=== PATIENT | male | born 1975 | race Caucasian/White ===

== ENCOUNTER 2018-12-27 22:57 | Emergency (ER) | payer OTHER ==
[~2018-12-27] VITALS: Ht 177.8 cm; Wt 122.0 kg
[~2018-12-27 22:57] MED LIST: AMLO10 PO; AMOCLA875 PO; CYCL10 PO; Flomax0.4 MG PO; HYDR1TAB94 PO; LISINOPRIL; LOSA50 PO; METF500 PO; Naprosyn500 MG PO; Norco 5-325 Ta1 EACH PO; ONDA4 PO; OXYACE5T PO; Prilosec2.5 MG; RXERYTOPTH OP
[2018-12-28 01:33] LABS: BASOPHILS ABSOLUTE AUTO 0.05 K/mm3 (0.00-0.23); BASOPHILS PERCENT AUTO 1 % (0-2); EOSINOPHILS ABSOLUTE AUTO 0.16 K/mm3 (0.00-0.68); EOSINOPHILS PERCENT AUTO 2 % (0-6); Hematocrit 47.1 % (37.0-53.0); Hemoglobin 15.4 g/dL (13.5-17.5); IMMATURE GRAN ABSOLUTE AUTO 0.05 K/mm3 (0.00-0.10); IMMATURE GRAN PERCENT AUTO 1 % (0-1); LYMPHOCYTES ABSOLUTE AUTO 2.85 K/mm3 (0.84-5.20); LYMPHOCYTES PERCENT AUTO 31 % (21-46); MONOCYTES ABSOLUTE AUTO 0.91 K/mm3 (0.16-1.47); MONOCYTES PERCENT AUTO 10 % (4-13); Mean Corpuscular HGB 31.6 pg (26.0-34.0); Mean Corpuscular HGB Conc 32.7 g/dL (31.5-36.5); Mean Corpuscular Volume 97 fL (80-100); Mean Platelet Volume 10.1 fL (9.1-12.4); NEUTROPHILS ABSOLUTE AUTO 5.26 K/mm3 (1.96-9.15); NEUTROPHILS PERCENT AUTO 57 % (41-73); Platelet Count 245 K/mm3 (150-400); RDW Coefficient Variation 12.5 % (11.7-14.2); RDW Standard Deviation 44.8 fL (35.1-46.3); Red Blood Cell Count 4.87 M/mm3 (4.30-5.90); White Blood Cell Count 9.28 K/mm3 (4.00-11.30)
[2018-12-28 01:52] LABS: Alanine Aminotransfer (ALT/SGP 42 U/L (12-78); Albumin, Blood 4.2 g/dL (3.4-5.0); Albumin/Globulin Ratio 1.2 (0.8-1.8); Alk Phos 84 U/L (50-136); Anion Gap 6 mmol/L (6-16); Aspartate Aminotrans (AST/SGOT 15 U/L (12-37); Bilirubin, Total 0.4 mg/dL (0.1-1.0); Blood Urea Nitrogen 15 mg/dL (8-24); Bun/Creatinine Ratio 15.9 (12.0-20.0); CO2, Blood 23 mmol/L (21-32); Calcium, Blood 8.8 mg/dL (8.5-10.1); Chloride, Blood 111 mmol/L (98-108); Creatinine, Blood 0.95 mg/dL (0.60-1.20); Globulin, Blood 3.4 g/dL (2.2-4.0); Glomerular Filtration Rate >60 (60-); Glucose, Blood 140 mg/dL (70-99); Potassium, Blood 3.5 mmol/L (3.5-5.5); Sodium, Blood 140 mmol/L (136-145); Total Protein, Blood 7.6 g/dL (6.4-8.2)
[2018-12-28] MEDS ORDERED: Budeprion Xl300 MG PO (01:58)
[2018-12-28] MEDS ORDERED: CARV6.25 PO (01:58)
[2018-12-28] MEDS ORDERED: Metformin HCl500 MG PO (01:58)
[2018-12-28] MEDS ORDERED: Zofran4 MG PO (02:06)
== END 2018-12-28 02:20 | disposition home or self-care (01) ==
LOC: ER 22:57
PROVIDERS: Emergency Medicine
DX: K85.90 Acute pancreatitis without necrosis or infection, unspecified (principal); E11.9 Type 2 diabetes mellitus without complications; I10 Essential (primary) hypertension; G47.30 Sleep apnea, unspecified; F17.210 Nicotine dependence, cigarettes, uncomplicated
CPT/HCPCS: 0097U; 36415; 80053; 83690; 85025; 96374; 96375; 99284-25; A9270; A9270-GY; J1170; J2405; J7030

== ENCOUNTER 2019-01-03 23:38 | Inpatient (IN) | payer OTHER ==
[~2019-01-03] VITALS: Ht 175.3 cm; Wt 124.3 kg
[~2019-01-03 23:38] MED LIST changes: +Budeprion Xl300 MG PO; +CARV6.25 PO; +Metformin HCl500 MG PO; +Zofran4 MG PO
[2019-01-04] MEDS ORDERED: METR500 PO (00:31)
[2019-01-04 03:49] LABS: Source, Urine Clean Catch
[2019-01-04 03:52] LABS: Bilirubin, Urine Neg (Neg); Blood, Urine Neg (Neg); Glucose Qualitative, Urine Neg (Neg); Ketones, Urine 1+ (Neg); Leukocyte Esterase, Urine 2+ (Neg); Nitrite, Urine Neg (Neg); Protein, Urine 1+ (Neg); Urobilinogen, Urine NORM (Normal)
[2019-01-04 04:02] LABS: Appearance, Urine Clear (Clear); Color, Urine Yellow (P-Yellow)
[2019-01-04 04:03] LABS: Amorphous Light (0-Heavy); Bacteria Few /hpf; Hyaline Casts 0-2 /lpf (0-2); Mucus Light (0-Heavy); Red Blood Cells, Urine Not Seen /hpf (0-2); Squamous Epithelial Cells Rare /hpf (Few); White Blood Cells, Urine 0-2 /hpf (0-5)
[2019-01-04 07:40] LABS: Triglycerides 97 mg/dL (30-160)
[2019-01-04] MEDS ORDERED: Bupropion HCl150 M2 PO (13:16)
[2019-01-04] MEDS ORDERED: ONDA4 PO (13:18)
[2019-01-04] MEDS ORDERED: FENO145 PO (13:18)
--- NOTE | 2019-01-04 14:48 | NUR ---
ER ADMIT- PT ARRIVED TO ROOM 355 VIA GURNEY FROM ED AT 1345. PT A INDEP TRANSFER INTO BED. PT REPORTS 7/10 PAIN TO LUQ, PRN FENTANYL GIVEN. PT REPORTS HEADACHE THAT RESOLVED AFTER FENTANYL. LS CLEAR, ON RA, CPAP AT HS. HRR. ABD TENDER TO LUQ, BT NORMAL. INTERMITTENT NAUSEA, PT REPORTS INCREASES WITH ANY EATING OR DRINKING. PT ORIENTED TO ROOM AND CALL SYSTEM, CALL LIGHT IN REACH. LR RUNNING AT 200ML/HR.
--- NOTE | 2019-01-04 16:06 | NUR ---
PT REPORTING HEARTBURN, SPOKE WITH DR BUTT. PROTONIX 40MG IV DAILY ORDERED TO START NOW.
--- NOTE | 2019-01-04 16:41 | NUR ---
SHIFT SUMMARY- PT ER ADMIT THIS AFTERNOON FOR PANCREATITIS. PT MEDICATED X1 WITH FENTANYL FOR LUQ PAIN, PT REPORTS FENTANYL RELIEVED PAIN ENOUGH TO RELAX. PT REPORTS HEARTBURN, STARTED ON PROTONIX. LS CLEAR, HRR. NO OTHER ACUTE CHANGES SINCE ARRIVAL TO FLOOR.
--- NOTE | 2019-01-04 19:01 | NUR ---
PT CONT TO REPORT LUQ AND EPIGASTRIC PAIN, PT ORDERED REGARULAR ADA DIET FOR DINNER. DINNER HELD AND BROTH GIVEN.
[2019-01-05 04:44] LABS: BASOPHILS ABSOLUTE AUTO 0.04 K/mm3 (0.00-0.23); BASOPHILS PERCENT AUTO 1 % (0-2); EOSINOPHILS ABSOLUTE AUTO 0.46 K/mm3 (0.00-0.68); EOSINOPHILS PERCENT AUTO 7 % (0-6); Hematocrit 40.8 % (37.0-53.0); Hemoglobin 13.3 g/dL (13.5-17.5); IMMATURE GRAN ABSOLUTE AUTO 0.02 K/mm3 (0.00-0.10); IMMATURE GRAN PERCENT AUTO 0 % (0-1); LYMPHOCYTES ABSOLUTE AUTO 2.33 K/mm3 (0.84-5.20); LYMPHOCYTES PERCENT AUTO 36 % (21-46); MONOCYTES ABSOLUTE AUTO 0.56 K/mm3 (0.16-1.47); MONOCYTES PERCENT AUTO 9 % (4-13); Mean Corpuscular HGB 31.8 pg (26.0-34.0); Mean Corpuscular HGB Conc 32.6 g/dL (31.5-36.5); Mean Platelet Volume 9.9 fL (9.1-12.4); NEUTROPHILS ABSOLUTE AUTO 3.06 K/mm3 (1.96-9.15); NEUTROPHILS PERCENT AUTO 47 % (41-73); Platelet Count 237 K/mm3 (150-400); RDW Coefficient Variation 12.5 % (11.7-14.2); RDW Standard Deviation 45.2 fL (35.1-46.3); Red Blood Cell Count 4.18 M/mm3 (4.30-5.90); White Blood Cell Count 6.47 K/mm3 (4.00-11.30)
[2019-01-05 04:47] LABS: Mean Corpuscular Volume 98 fL (80-100)
[2019-01-05 05:00] LABS: Albumin, Blood 3.3 g/dL (3.4-5.0); Anion Gap 5 mmol/L (6-16); Blood Urea Nitrogen 8 mg/dL (8-24); Bun/Creatinine Ratio 9.2 (12.0-20.0); CO2, Blood 27 mmol/L (21-32); Calcium, Blood 8.7 mg/dL (8.5-10.1); Chloride, Blood 110 mmol/L (98-108); Creatinine, Blood 0.87 mg/dL (0.60-1.20); Glomerular Filtration Rate >60 (60-); Glucose, Blood 96 mg/dL (70-99); Phosphorus, Blood 3.2 mg/dL (2.5-4.9); Potassium, Blood 3.9 mmol/L (3.5-5.5); Sodium, Blood 142 mmol/L (136-145)
--- NOTE | 2019-01-05 05:33 | NUR ---
SHIFT SUMMARY NO ACUTE EVENTS OVERNIGHT. NO S/S OF DISTRESS. PAIN MEDICATION GIVEN PRN. HOME CPAP USED OVERNIGHT. PATIENT WALKED FROM ROOM TO END OF HALLWAY AND BACK BY SELF. GIACOMO
--- NOTE | 2019-01-05 16:44 | NUR ---
PT IS A/OX3, PLEASANT AND COOPERATIVE, THE PT IS UP WITH MINIMAL ASSIST, THE PT WAS UP WALKING IN THE HUI TODAY X2 SO FAR, THE PT WAS MEDICATED FOR PAIN T/O THE DAY AND NAUSEA X2, THE PT WAS ENCOURAGED TO LIMIT HIS PO INTAKE TO SMALL INFREQUANT BITES AND SIPS, ESPECIALLY IF HE WAS EXPERIANCING PAIN, THE PT APPEARS TO BE BREATHING EASILY ON RA AT THIS TIME, MULTIPLE FAMILY AND FREINDS AT THE BEDSIDE T/O THE DAY, CALL LIGHT IN REACH WILL CONTINUE TO MONITOR AND ASSESS FOR CHANGES
[2019-01-06 04:41] LABS: Hemoglobin 13.5 g/dL (13.5-17.5); Mean Corpuscular HGB 31.9 pg (26.0-34.0); Mean Corpuscular HGB Conc 32.9 g/dL (31.5-36.5); Mean Corpuscular Volume 97 fL (80-100); Platelet Count 229 K/mm3 (150-400); RDW Coefficient Variation 12.6 % (11.7-14.2); RDW Standard Deviation 45.1 fL (35.1-46.3); Red Blood Cell Count 4.23 M/mm3 (4.30-5.90); White Blood Cell Count 6.75 K/mm3 (4.00-11.30)
[2019-01-06 04:56] LABS: Anion Gap 5 mmol/L (6-16); Blood Urea Nitrogen 14 mg/dL (8-24); Bun/Creatinine Ratio 15.2 (12.0-20.0); CO2, Blood 26 mmol/L (21-32); Calcium, Blood 8.8 mg/dL (8.5-10.1); Chloride, Blood 109 mmol/L (98-108); Creatinine, Blood 0.92 mg/dL (0.60-1.20); Glomerular Filtration Rate >60 (60-); Glucose, Blood 125 mg/dL (70-99); Potassium, Blood 3.8 mmol/L (3.5-5.5); Sodium, Blood 140 mmol/L (136-145)
--- NOTE | 2019-01-06 06:11 | NUR ---
SHIFT SUMMARY PATIENT REQUIRING PAIN MEDICATION T/O CONSULTING SME. TIMBER HEWER PATIENT BEGAN COMPLAINING OF NAUSEA. TREATED WITH ORDERED ZOFRAN (SEE EMAR) THEN 2 HOURS LATER PATIENT ONCE AGAIN COMPLAINED OF NAUSEA. I ASKED PATIENT IF HE THOUGHT THE NAUSEA MIGHT BE RELATED TO HIS PAIN. TREATED PATIENT WITH DILAUDID (SEE EMAR) PATIENT THEN STATED HIS NAUSEA HAD RESOLVED. PATIENT AMBULATED IN HALLWAY THEN RETURNED TO BED. PATIENT REQUESTING MORE IV NORMAL SALINE SINCE HE PLANS ON NOT EATING TODAY.
--- NOTE | 2019-01-06 14:53 | NUR ---
Per admit trigger, I met with Emre to offer prayer and encouragement. He was talkative and welcoming. He expressed frustration with his illness as it is keeping him from being active. He is hoping for some answers and cure. He responded well to theraputic listening, prayer, and suggestions. I will remain available.
--- NOTE | 2019-01-06 18:32 | NUR ---
SHIFT SUMMARY PT HAS BEEN AMBULATING IN HALLS. MEDICATED FOR NAUSEA AND PAIN PER EMAR SEVERAL TIMES THIS SHIFT. IVF STARTED THIS SHIFT AND INFUSING WITHOUT DIFFICULTY. PT HAS BEEN TAKING SMALL SIPS OF WATER AND ICE CHIPS. NO ACUTE CHANGES THIS SHIFT. CALL LIGHT IN REACH. WILL CONTINUE TO MONITOR AND REPORT TO ONCOMING RN.
[2019-01-07 05:10] LABS: Hematocrit 43.9 % (37.0-53.0); Hemoglobin 14.3 g/dL (13.5-17.5); Mean Corpuscular HGB 31.8 pg (26.0-34.0); Mean Corpuscular HGB Conc 32.6 g/dL (31.5-36.5); Mean Corpuscular Volume 98 fL (80-100); Mean Platelet Volume 10.1 fL (9.1-12.4); Platelet Count 244 K/mm3 (150-400); RDW Coefficient Variation 12.4 % (11.7-14.2); RDW Standard Deviation 44.6 fL (35.1-46.3); White Blood Cell Count 6.12 K/mm3 (4.00-11.30)
[2019-01-07 05:31] LABS: Anion Gap 7 mmol/L (6-16); Blood Urea Nitrogen 8 mg/dL (8-24); Bun/Creatinine Ratio 9.6 (12.0-20.0); CO2, Blood 26 mmol/L (21-32); Calcium, Blood 8.8 mg/dL (8.5-10.1); Chloride, Blood 107 mmol/L (98-108); Creatinine, Blood 0.83 mg/dL (0.60-1.20); Glomerular Filtration Rate >60 (60-); Glucose, Blood 98 mg/dL (70-99); Potassium, Blood 3.9 mmol/L (3.5-5.5); Sodium, Blood 140 mmol/L (136-145)
--- NOTE | 2019-01-07 06:17 | NUR ---
SHIFT SUMMARY NO ACUTE EVENTS OVERNIGHT. PATIENT REQUIRED PAIN MEDICATION (SEE EMAR) MULTIPLE TIMES THROUGHOUT HE NIGHT. PATIENT AMBULATED IN HUI 100 FEET MULTIPLE TIMES. COMPLAINTS OF NAUSEA HELPED WITH PAIN MEDICATION AND ONE DOSE OF ZOFRAN.
--- NOTE | 2019-01-07 18:35 | NUR ---
SHIFT SUMMARY ATE 100% DINNER TRAY. A AND OX3, INDEPENDENT IN ROOM. CPAP. CONTINUES TO NEED IV PAIN MEDICATION THROUGHOUT DAY. NAUSEA BUT NO VOMITING THIS SHIFT. NORMAL BM. PT STATES "I THINK I'M GETTING A LITTLE BETTER".
--- NOTE | 2019-01-08 15:30 | NUR ---
SUMMARY PT STATE CONTINUING L UPPER ABD, SHARP @ X'S, CONSTANT, HIGH 12/[address] VALLE IN TO SEE HIM THIS AM, STATE TO USE ORAL OXYCODONE FOR RELIEF/CONTROL WITH IV DILAUDID FOR BREAKTHRU. CHANGE OXYCODONE TO Q4PRN. HAVE GIVEN APPROX Q4, GAVE 0.5 MG DILAUDID @ 14OO FOR BREAKTHRU. PT STATE TOLERATING ADA DIET CAUTIOUSLY, NO NAUSEA SO FAR TODAY. STATE CONCERN FOR CONSTIPATION, AMBULATION ENCOURAGED, PT UP AMBULATE [place], STATE LRG SOFT BM TODAY, RELIEF. HE IS A/O X4, PLEASANT AFFECT. VSS.
[2019-01-09 04:45] LABS: BASOPHILS ABSOLUTE AUTO 0.04 K/mm3 (0.00-0.23); BASOPHILS PERCENT AUTO 1 % (0-2); EOSINOPHILS ABSOLUTE AUTO 0.42 K/mm3 (0.00-0.68); EOSINOPHILS PERCENT AUTO 9 % (0-6); Hematocrit 42.5 % (37.0-53.0); Hemoglobin 14.1 g/dL (13.5-17.5); IMMATURE GRAN ABSOLUTE AUTO 0.02 K/mm3 (0.00-0.10); IMMATURE GRAN PERCENT AUTO 0 % (0-1); LYMPHOCYTES ABSOLUTE AUTO 1.74 K/mm3 (0.84-5.20); LYMPHOCYTES PERCENT AUTO 39 % (21-46); MONOCYTES ABSOLUTE AUTO 0.44 K/mm3 (0.16-1.47); MONOCYTES PERCENT AUTO 10 % (4-13); Mean Corpuscular HGB 31.5 pg (26.0-34.0); Mean Corpuscular HGB Conc 33.2 g/dL (31.5-36.5); Mean Platelet Volume 9.8 fL (9.1-12.4); NEUTROPHILS ABSOLUTE AUTO 1.83 K/mm3 (1.96-9.15); NEUTROPHILS PERCENT AUTO 41 % (41-73); Platelet Count 260 K/mm3 (150-400); RDW Coefficient Variation 12.6 % (11.7-14.2); RDW Standard Deviation 43.6 fL (35.1-46.3); Red Blood Cell Count 4.47 M/mm3 (4.30-5.90); White Blood Cell Count 4.49 K/mm3 (4.00-11.30)
[2019-01-09 04:47] LABS: Mean Corpuscular Volume 95 fL (80-100)
[2019-01-09 05:05] LABS: Alanine Aminotransfer (ALT/SGP 52 U/L (12-78); Albumin, Blood 3.6 g/dL (3.4-5.0); Albumin/Globulin Ratio 1.1 (0.8-1.8); Alk Phos 61 U/L (50-136); Anion Gap 6 mmol/L (6-16); Aspartate Aminotrans (AST/SGOT 40 U/L (12-37); Bilirubin, Total 0.4 mg/dL (0.1-1.0); Blood Urea Nitrogen 10 mg/dL (8-24); CO2, Blood 27 mmol/L (21-32); Calcium, Blood 9.2 mg/dL (8.5-10.1); Chloride, Blood 109 mmol/L (98-108); Creatinine, Blood 0.91 mg/dL (0.60-1.20); Globulin, Blood 3.4 g/dL (2.2-4.0); Glomerular Filtration Rate >60 (60-); Glucose, Blood 126 mg/dL (70-99); Potassium, Blood 4.1 mmol/L (3.5-5.5); Sodium, Blood 142 mmol/L (136-145)
--- NOTE | 2019-01-09 06:16 | NUR ---
SHIFT SUMMARY PATIENT AWAKE DUING MOST OF THE NIGHT. AMBULATED IN HALLWAY BY SELF. NO ACUTE EVENTS. PAIN MEDICATIONS PRN.
[2019-01-09] MEDS ORDERED: ACET325 PO (10:58)
[2019-01-09] MEDS ORDERED: ROXICODONE5 MG PO (10:59)
[2019-01-09] MEDS ORDERED: PANT20 PO (11:01)
--- NOTE | 2019-01-09 12:09 | NUR ---
DISCHARGE PT STATE CONTINUING LUQ ABD PAIN. STATE PAIN CONTROL WITH ORAL OXYCODONE. STATE TOLERATING DIET. DR VALLE IN TO SEE HIM STATE PT MAY GO HOME TODAY & F/U WITH GI OUTPT. PT AGREES, STATE FEELS READY FOR D/C, DR RODRIGUEZ ORDERS. IV D/C INTACT. ORDERS FAXED TO [facility], [facility] OXYCODONE SCRIPT PROVIDED TO PT. D/C INSTRUCT PROVIDED. HIS SISTER IN FOR TRANSPORTATION HOME. HE IS PLEASANT, APPRECIATIVE. CHOOSES TO AMBULATE FROM HOSP.
== END 2019-01-09 12:01 | disposition home or self-care (01) | DRG 439 ==
LOC: ER 23:38 → MEDS 23:39 → ERHOLD 23:39 → MEDS 01-04 13:35 → ERHOLD 01-04 14:03 → MEDS 01-04 14:03 → ENPENDDIS 01-09 10:56 → MEDS 01-09 12:01
PROVIDERS: Emergency Medicine; Internal Medicine; ADMIT Hospitalist
DX: K85.90 Acute pancreatitis without necrosis or infection, unspecified (principal); A07.1 Giardiasis [lambliasis]; Z68.41 Body mass index [BMI] 40.0-44.9, adult; F32.9 Major depressive disorder, single episode, unspecified; E11.9 Type 2 diabetes mellitus without complications; I10 Essential (primary) hypertension; E66.01 Morbid (severe) obesity due to excess calories; G47.33 Obstructive sleep apnea (adult) (pediatric); F17.200 Nicotine dependence, unspecified, uncomplicated; Z79.84 Long term (current) use of oral hypoglycemic drugs; Z79.899 Other long term (current) drug therapy
CPT/HCPCS: 36415; 74160; 80048; 80053; 80069; 81001; 82947; 83690; 84478; 85025; 85027; 87086; 94762; 96361; 96374; 96375; 96376; 99285-25; A9270; A9270-GY; C9113; J1170; J1650; J2405; J3010; J7030; J7120; Q9967

== ENCOUNTER → 2019-01-25 | Outpatient (CLI) | payer OTHER ==
[~2019-01-25] MED LIST changes: +ACET325 PO; +Bupropion HCl150 M2 PO; +FENO145 PO; +KETO10 PO; +METR500 PO; +PANT20 PO; +ROXICODONE5 MG PO
[2019-01-29 14:07] LABS: M-SPIKE, % Not Observed % (Not Observed)
[2019-02-20 07:59] LABS: PROTEIN,TOTAL,URINE 12.4
== END | disposition home or self-care (01) ==
LOC: LAB SHORT 15:18 → LAB 15:18 → LAB FUT 01-21 13:00
PROVIDERS: Internal Medicine
DX: Z00.01 Encounter for general adult medical examination with abnormal findings (principal)
CPT/HCPCS: 84166; 86335

== ENCOUNTER 2019-01-26 19:28 | Emergency (ER) | payer OTHER ==
[~2019-01-26] VITALS: Ht 175.3 cm; Wt 117.5 kg
[~2019-01-26 19:28] MED LIST changes: -KETO10 PO
[2019-01-26] MEDS ORDERED: KETO10 PO (20:37)
== END 2019-01-26 20:52 | disposition home or self-care (01) ==
LOC: ER 19:28
DX: S63.502A Unspecified sprain of left wrist, initial encounter (principal); W18.30XA Fall on same level, unspecified, initial encounter; Z79.899 Other long term (current) drug therapy; Z79.84 Long term (current) use of oral hypoglycemic drugs; E11.9 Type 2 diabetes mellitus without complications; I10 Essential (primary) hypertension; F17.210 Nicotine dependence, cigarettes, uncomplicated
CPT/HCPCS: 29125; 73090; 73130; 99283-25

== ENCOUNTER 2019-05-07 15:27 | Emergency (ER) | payer OTHER ==
[~2019-05-07] VITALS: Ht 175.3 cm; Wt 122.9 kg
[~2019-05-07 15:27] MED LIST changes: +KETO10 PO
[2019-05-07] MEDS ORDERED: Esgic Tablet1 EACH PO (18:04)
[2019-05-07] MEDS ORDERED: IBUP800 PO (18:04)
== END 2019-05-07 19:19 | disposition home or self-care (01) ==
LOC: ER 15:27
DX: J33.9 Nasal polyp, unspecified (principal); R51 Headache; Z79.899 Other long term (current) drug therapy; Z79.84 Long term (current) use of oral hypoglycemic drugs; E11.9 Type 2 diabetes mellitus without complications; G47.30 Sleep apnea, unspecified; I10 Essential (primary) hypertension; F32.9 Major depressive disorder, single episode, unspecified; F17.210 Nicotine dependence, cigarettes, uncomplicated
CPT/HCPCS: 70450; 96361; 96374; 96375; 99284-25; J0780; J1100; J1200; J1885; J7030

== ENCOUNTER 2019-06-27 09:26 | Emergency (ER) | payer OTHER ==
[~2019-06-27] VITALS: Ht 177.8 cm; Wt 122.5 kg
[~2019-06-27 09:26] MED LIST changes: +Esgic Tablet1 EACH PO; +IBUP800 PO
[2019-06-27 09:48] LABS: BASOPHILS ABSOLUTE AUTO 0.05 K/mm3 (0.00-0.23); BASOPHILS PERCENT AUTO 1 % (0-2); EOSINOPHILS ABSOLUTE AUTO 0.18 K/mm3 (0.00-0.68); EOSINOPHILS PERCENT AUTO 2 % (0-6); Hematocrit 46.6 % (37.0-53.0); Hemoglobin 15.5 g/dL (13.5-17.5); IMMATURE GRAN PERCENT AUTO 1 % (0-1); LYMPHOCYTES ABSOLUTE AUTO 2.44 K/mm3 (0.84-5.20); LYMPHOCYTES PERCENT AUTO 31 % (21-46); MONOCYTES ABSOLUTE AUTO 0.56 K/mm3 (0.16-1.47); MONOCYTES PERCENT AUTO 7 % (4-13); Mean Corpuscular HGB 31.7 pg (26.0-34.0); Mean Corpuscular HGB Conc 33.3 g/dL (31.5-36.5); Mean Corpuscular Volume 95 fL (80-100); NEUTROPHILS ABSOLUTE AUTO 4.48 K/mm3 (1.96-9.15); NEUTROPHILS PERCENT AUTO 57 % (41-73); Platelet Count 221 K/mm3 (150-400); RDW Coefficient Variation 12.5 % (11.7-14.2); RDW Standard Deviation 43.6 fL (35.1-46.3); Red Blood Cell Count 4.89 M/mm3 (4.30-5.90); White Blood Cell Count 7.81 K/mm3 (4.00-11.30)
[2019-06-27 10:04] LABS: Alanine Aminotransfer (ALT/SGP 162 U/L (12-78); Albumin, Blood 4.1 g/dL (3.4-5.0); Albumin/Globulin Ratio 1.2 (0.8-1.8); Alk Phos 92 U/L (50-136); Anion Gap 8 mmol/L (6-16); Aspartate Aminotrans (AST/SGOT 76 U/L (12-37); Bilirubin, Total 0.5 mg/dL (0.1-1.0); Blood Urea Nitrogen 21 mg/dL (8-24); Bun/Creatinine Ratio 25.3 (12.0-20.0); CO2, Blood 26 mmol/L (21-32); Calcium, Blood 8.9 mg/dL (8.5-10.1); Chloride, Blood 101 mmol/L (98-108); Creatinine, Blood 0.83 mg/dL (0.60-1.20); Globulin, Blood 3.5 g/dL (2.2-4.0); Glomerular Filtration Rate >60 (60-); Glucose, Blood 286 mg/dL (70-99); Potassium, Blood 4.5 mmol/L (3.5-5.5); Sodium, Blood 135 mmol/L (136-145); Total Protein, Blood 7.6 g/dL (6.4-8.2); Troponin I <0.015 ng/mL (0.000-0.040)
[2019-06-27] MEDS ORDERED: Coreg12.5 MG PO (10:48)
== END 2019-06-27 11:01 | disposition home or self-care (01) ==
LOC: ER 09:26
PROVIDERS: Physician Assistant
DX: I10 Essential (primary) hypertension (principal); F41.8 Other specified anxiety disorders; E11.9 Type 2 diabetes mellitus without complications; Z87.891 Personal history of nicotine dependence; Z79.84 Long term (current) use of oral hypoglycemic drugs; Z79.899 Other long term (current) drug therapy
CPT/HCPCS: 36415; 71046; 80053; 84484; 85025; 93005; 93010; 99284-25

== ENCOUNTER 2019-07-24 20:32 | Emergency (ER) | payer OTHER ==
[~2019-07-24] VITALS: Ht 177.8 cm; Wt 131.5 kg
[~2019-07-24 20:32] MED LIST changes: +Coreg12.5 MG PO
[2019-07-24 21:17] LABS: BASOPHILS ABSOLUTE AUTO 0.05 K/mm3 (0.00-0.23); BASOPHILS PERCENT AUTO 1 % (0-2); EOSINOPHILS ABSOLUTE AUTO 0.18 K/mm3 (0.00-0.68); EOSINOPHILS PERCENT AUTO 3 % (0-6); Hematocrit 46.1 % (37.0-53.0); Hemoglobin 15.5 g/dL (13.5-17.5); IMMATURE GRAN ABSOLUTE AUTO 0.06 K/mm3 (0.00-0.10); IMMATURE GRAN PERCENT AUTO 1 % (0-1); LYMPHOCYTES ABSOLUTE AUTO 3.13 K/mm3 (0.84-5.20); LYMPHOCYTES PERCENT AUTO 48 % (21-46); MONOCYTES ABSOLUTE AUTO 0.51 K/mm3 (0.16-1.47); MONOCYTES PERCENT AUTO 8 % (4-13); Mean Corpuscular HGB 31.8 pg (26.0-34.0); Mean Corpuscular HGB Conc 33.6 g/dL (31.5-36.5); Mean Corpuscular Volume 95 fL (80-100); Mean Platelet Volume 10.1 fL (9.1-12.4); NEUTROPHILS ABSOLUTE AUTO 2.54 K/mm3 (1.96-9.15); NEUTROPHILS PERCENT AUTO 39 % (41-73); Platelet Count 237 K/mm3 (150-400); RDW Standard Deviation 41.9 fL (35.1-46.3); Red Blood Cell Count 4.88 M/mm3 (4.30-5.90); White Blood Cell Count 6.47 K/mm3 (4.00-11.30)
[2019-07-24] MEDS ORDERED: OMEPRAZOLE20 MG PO (21:25)
[2019-07-24] MEDS ORDERED: METF500 PO (21:26)
[2019-07-24] MEDS ORDERED: LOSA50 PO (21:26)
[2019-07-24] MEDS ORDERED: Coreg25 MG PO (21:27)
[2019-07-24 21:37] LABS: Alanine Aminotransfer (ALT/SGP 171 U/L (12-78); Albumin/Globulin Ratio 1.1 (0.8-1.8); Alk Phos 131 U/L (50-136); Anion Gap 7 mmol/L (6-16); Aspartate Aminotrans (AST/SGOT 71 U/L (12-37); Bilirubin, Total 0.4 mg/dL (0.1-1.0); Blood Urea Nitrogen 19 mg/dL (8-24); Bun/Creatinine Ratio 21.5 (12.0-20.0); CO2, Blood 23 mmol/L (21-32); Chloride, Blood 104 mmol/L (98-108); Creatinine, Blood 0.89 mg/dL (0.60-1.20); Globulin, Blood 3.6 g/dL (2.2-4.0); Glomerular Filtration Rate >60 (60-); Glucose, Blood 369 mg/dL (70-99); Potassium, Blood 4.1 mmol/L (3.5-5.5); Sodium, Blood 134 mmol/L (136-145); Total Protein, Blood 7.6 g/dL (6.4-8.2); Troponin I <0.015 ng/mL (0.000-0.040)
== END 2019-07-24 22:45 | disposition home or self-care (01) ==
LOC: ER 20:32
PROVIDERS: Emergency Medicine
DX: R07.89 Other chest pain (principal); E11.65 Type 2 diabetes mellitus with hyperglycemia; I10 Essential (primary) hypertension; F32.9 Major depressive disorder, single episode, unspecified; Z87.891 Personal history of nicotine dependence; Z79.899 Other long term (current) drug therapy; Z79.84 Long term (current) use of oral hypoglycemic drugs; Z88.8 Allergy status to other drugs, medicaments and biological substances
CPT/HCPCS: 36415; 71046; 80053; 83880; 84484; 85025; 93005; 93010; 99285-25

== ENCOUNTER → 2019-07-31 | Outpatient (CLI) | payer OTHER ==
[~2019-07-31] MED LIST changes: +Coreg25 MG PO; +OMEPRAZOLE20 MG PO
[2019-08-01 18:06] LABS: CHLAMYDIA TRACHOMATIS, NAA Negative (Negative); NEISSERIA GONORRHOEAE, NAA Negative (Negative)
[2019-08-02 05:09] LABS: CHLAMYDIA TRACHOMATIS, NAA Negative (Negative); NEISSERIA GONORRHOEAE, NAA Negative (Negative)
== END ==
LOC: LAB UCHC 11:38 → LAB SHORT 11:38
PROVIDERS: Registered Nurse Community Health
DX: L30.9 Dermatitis, unspecified (principal); Z20.2 Contact with and (suspected) exposure to infections with a predominantly sexual mode of transmission
CPT/HCPCS: 87070; 87205

== ENCOUNTER → 2019-11-01 | Outpatient (CLI) | payer OTHER ==
[2019-11-06 13:11] LABS: COTININE <10.0 ng/mL (.); NICOTINE <10.0 ng/mL (.)
== END | disposition home or self-care (01) ==
LOC: OLS 15:22 → LAB SHORT 15:22 → LAB FUT 09-30 13:55
PROVIDERS: Otolaryngology
DX: J32.4 Chronic pansinusitis (principal); J34.2 Deviated nasal septum; F17.209 Nicotine dependence, unspecified, with unspecified nicotine-induced disorders
CPT/HCPCS: G0480

== ENCOUNTER 2020-01-08 15:54 | Emergency (ER) | payer OTHER ==
[~2020-01-08] VITALS: Ht 175.3 cm; Wt 131.5 kg
[2020-01-08 16:46] LABS: BASOPHILS ABSOLUTE AUTO 0.04 K/mm3 (0.00-0.23); BASOPHILS PERCENT AUTO 1 % (0-2); EOSINOPHILS ABSOLUTE AUTO 0.15 K/mm3 (0.00-0.68); EOSINOPHILS PERCENT AUTO 2 % (0-6); Hematocrit 46.3 % (37.0-53.0); Hemoglobin 15.4 g/dL (13.5-17.5); IMMATURE GRAN ABSOLUTE AUTO 0.03 K/mm3 (0.00-0.10); IMMATURE GRAN PERCENT AUTO 0 % (0-1); LYMPHOCYTES ABSOLUTE AUTO 2.76 K/mm3 (0.84-5.20); LYMPHOCYTES PERCENT AUTO 40 % (21-46); MONOCYTES ABSOLUTE AUTO 0.47 K/mm3 (0.16-1.47); MONOCYTES PERCENT AUTO 7 % (4-13); Mean Corpuscular HGB 31.1 pg (26.0-34.0); Mean Corpuscular HGB Conc 33.3 g/dL (31.5-36.5); Mean Corpuscular Volume 94 fL (80-100); Mean Platelet Volume 10.9 fL (9.1-12.4); NEUTROPHILS ABSOLUTE AUTO 3.52 K/mm3 (1.96-9.15); NEUTROPHILS PERCENT AUTO 51 % (41-73); Platelet Count 167 K/mm3 (150-400); RDW Coefficient Variation 12.3 % (11.7-14.2); Red Blood Cell Count 4.95 M/mm3 (4.30-5.90); White Blood Cell Count 6.97 K/mm3 (4.00-11.30)
[2020-01-08 17:13] LABS: Alanine Aminotransfer (ALT/SGP 245 U/L (12-78); Albumin, Blood 3.8 g/dL (3.4-5.0); Alk Phos 155 U/L (50-136); Anion Gap 6 mmol/L (6-16); Aspartate Aminotrans (AST/SGOT 165 U/L (12-37); Beta-hydroxybutyrate 1.7 mg/dL (0.2-2.8); Bilirubin, Total 0.6 mg/dL (0.1-1.0); Blood Urea Nitrogen 17 mg/dL (8-24); Bun/Creatinine Ratio 24.3 (12.0-20.0); CO2, Blood 25 mmol/L (21-32); Calcium, Blood 9.4 mg/dL (8.5-10.1); Chloride, Blood 100 mmol/L (98-108); Glomerular Filtration Rate >60 (60-); Glucose, Blood 331 mg/dL (70-99); Potassium, Blood 4.2 mmol/L (3.5-5.5); Sodium, Blood 131 mmol/L (136-145); Total Protein, Blood 7.8 g/dL (6.4-8.2)
[2020-01-08] MEDS ORDERED: LANTUS SOL100 UNIT/1 SC (17:18)
[2020-01-08] MEDS ORDERED: GLIP10 PO (17:20)
[2020-01-08] MEDS ORDERED: HYDCHL25 PO (17:21)
[2020-01-08] MEDS ORDERED: ZOLOFT100 MG PO (17:22)
[2020-01-08] MEDS ORDERED: LOSARTAN POTAS100 M1 PO (17:22)
[2020-01-08] MEDS ORDERED: INSULIN AS100 UNIT/8 SC (17:23)
[2020-01-08 17:44] LABS: Source, Urine Clean Catch
[2020-01-08 17:54] LABS: Bilirubin, Urine Neg (Neg); Blood, Urine Neg (Neg); Glucose Qualitative, Urine 4+ (Neg); Ketones, Urine Neg (Neg); Leukocyte Esterase, Urine Neg (Neg); Nitrite, Urine Neg (Neg); Protein, Urine Neg (Neg); Specific Gravity, Urine 1.015 (1.003-1.022); Urobilinogen, Urine NORM (Normal); pH, Urine 6.5 (5.0-8.0)
[2020-01-08 18:04] LABS: Appearance, Urine Clear (Clear); Color, Urine Yellow (P-Yellow)
== END 2020-01-08 18:09 | disposition home or self-care (01) ==
LOC: ER 15:54
PROVIDERS: Physician Assistant
DX: E11.65 Type 2 diabetes mellitus with hyperglycemia (principal); R74.0 Nonspecific elevation of levels of transaminase and lactic acid dehydrogenase [LDH]; I10 Essential (primary) hypertension; F32.9 Major depressive disorder, single episode, unspecified; F17.200 Nicotine dependence, unspecified, uncomplicated; Z88.8 Allergy status to other drugs, medicaments and biological substances; Z79.899 Other long term (current) drug therapy; Z79.4 Long term (current) use of insulin
CPT/HCPCS: 36415; 80053; 81003; 82010; 82947; 85025; 93005; 93010; 99283-25

== ENCOUNTER 2020-05-16 14:30 | Emergency (ER) | payer OTHER ==
[~2020-05-16] VITALS: Ht 177.8 cm; Wt 124.7 kg
[~2020-05-16 14:30] MED LIST changes: +GLIP10 PO; +HYDCHL25 PO; +INSULIN AS100 UNIT/8 SC; +LANTUS SOL100 UNIT/1 SC; +LOSARTAN POTAS100 M1 PO; +ZOLOFT100 MG PO
[2020-05-16 14:53] LABS: BASOPHILS ABSOLUTE AUTO 0.06 K/mm3 (0.00-0.23); BASOPHILS PERCENT AUTO 1 % (0-2); EOSINOPHILS ABSOLUTE AUTO 0.16 K/mm3 (0.00-0.68); EOSINOPHILS PERCENT AUTO 2 % (0-6); Hematocrit 43.2 % (37.0-53.0); Hemoglobin 14.3 g/dL (13.5-17.5); IMMATURE GRAN ABSOLUTE AUTO 0.01 K/mm3 (0.00-0.10); IMMATURE GRAN PERCENT AUTO 0 % (0-1); LYMPHOCYTES ABSOLUTE AUTO 2.66 K/mm3 (0.84-5.20); LYMPHOCYTES PERCENT AUTO 39 % (21-46); MONOCYTES ABSOLUTE AUTO 0.52 K/mm3 (0.16-1.47); MONOCYTES PERCENT AUTO 8 % (4-13); Mean Corpuscular HGB 31.6 pg (26.0-34.0); Mean Corpuscular HGB Conc 33.1 g/dL (31.5-36.5); Mean Corpuscular Volume 96 fL (80-100); Mean Platelet Volume 10.3 fL (9.1-12.4); NEUTROPHILS ABSOLUTE AUTO 3.37 K/mm3 (1.96-9.15); NEUTROPHILS PERCENT AUTO 50 % (41-73); Platelet Count 227 K/mm3 (150-400); RDW Standard Deviation 42.1 fL (35.1-46.3); Red Blood Cell Count 4.52 M/mm3 (4.30-5.90); White Blood Cell Count 6.78 K/mm3 (4.00-11.30)
[2020-05-16 15:23] LABS: Alanine Aminotransfer (ALT/SGP 173 U/L (12-78); Albumin, Blood 3.7 g/dL (3.4-5.0); Alk Phos 94 U/L (50-136); Anion Gap 6 mmol/L (6-16); Aspartate Aminotrans (AST/SGOT 83 U/L (12-37); Bilirubin, Total 0.8 mg/dL (0.1-1.0); Blood Urea Nitrogen 14 mg/dL (8-24); Bun/Creatinine Ratio 13.7 (12.0-20.0); CO2, Blood 25 mmol/L (21-32); Calcium, Blood 9.1 mg/dL (8.5-10.1); Chloride, Blood 107 mmol/L (98-108); Creatinine, Blood 1.02 mg/dL (0.60-1.20); Globulin, Blood 3.6 g/dL (2.2-4.0); Glomerular Filtration Rate >60 (60-); Glucose, Blood 294 mg/dL (70-99); Potassium, Blood 4.2 mmol/L (3.5-5.5); Sodium, Blood 138 mmol/L (136-145); Total Protein, Blood 7.3 g/dL (6.4-8.2)
== END 2020-05-16 18:45 | disposition home or self-care (01) ==
LOC: ER 14:30
PROVIDERS: Emergency Medicine
DX: R55 Syncope and collapse (principal); E86.0 Dehydration; E11.9 Type 2 diabetes mellitus without complications; I10 Essential (primary) hypertension; F32.9 Major depressive disorder, single episode, unspecified; F17.200 Nicotine dependence, unspecified, uncomplicated; Z79.4 Long term (current) use of insulin; Z79.899 Other long term (current) drug therapy
CPT/HCPCS: 36415; 70450; 80053; 83605; 84484; 85025; 93005; 93010; 96360; 99284-25; J7030

== ENCOUNTER 2020-07-14 14:18 | Emergency (ER) | payer OTHER ==
[~2020-07-14] VITALS: Ht 175.3 cm; Wt 122.5 kg
[2020-07-14 15:07] LABS: BASOPHILS ABSOLUTE AUTO 0.05 K/mm3 (0.00-0.23); BASOPHILS PERCENT AUTO 1 % (0-2); EOSINOPHILS ABSOLUTE AUTO 0.15 K/mm3 (0.00-0.68); EOSINOPHILS PERCENT AUTO 2 % (0-6); Hematocrit 47.3 % (37.0-53.0); Hemoglobin 15.7 g/dL (13.5-17.5); IMMATURE GRAN ABSOLUTE AUTO 0.02 K/mm3 (0.00-0.10); IMMATURE GRAN PERCENT AUTO 0 % (0-1); LYMPHOCYTES ABSOLUTE AUTO 2.65 K/mm3 (0.84-5.20); LYMPHOCYTES PERCENT AUTO 41 % (21-46); MONOCYTES ABSOLUTE AUTO 0.39 K/mm3 (0.16-1.47); MONOCYTES PERCENT AUTO 6 % (4-13); Mean Corpuscular HGB 31.8 pg (26.0-34.0); Mean Corpuscular HGB Conc 33.2 g/dL (31.5-36.5); Mean Corpuscular Volume 96 fL (80-100); NEUTROPHILS ABSOLUTE AUTO 3.17 K/mm3 (1.96-9.15); NEUTROPHILS PERCENT AUTO 49 % (41-73); Platelet Count 214 K/mm3 (150-400); RDW Coefficient Variation 12.4 % (11.7-14.2); Red Blood Cell Count 4.93 M/mm3 (4.30-5.90); White Blood Cell Count 6.43 K/mm3 (4.00-11.30)
[2020-07-14 15:14] LABS: Ethanol (Alcohol), Blood, Med <3 mg/dL; Magnesium, Blood 2.1 mg/dL (1.6-2.4)
[2020-07-14 15:17] LABS: Alanine Aminotransfer (ALT/SGP 235 U/L (12-78); Albumin, Blood 3.8 g/dL (3.4-5.0); Albumin/Globulin Ratio 0.9 (0.8-1.8); Alk Phos 112 U/L (50-136); Anion Gap 6 mmol/L (6-16); Aspartate Aminotrans (AST/SGOT 163 U/L (12-37); Bilirubin, Total 0.6 mg/dL (0.1-1.0); Blood Urea Nitrogen 12 mg/dL (8-24); Bun/Creatinine Ratio 15.1 (12.0-20.0); CO2, Blood 30 mmol/L (21-32); Calcium, Blood 9.3 mg/dL (8.5-10.1); Chloride, Blood 101 mmol/L (98-108); Creatinine, Blood 0.79 mg/dL (0.60-1.20); Globulin, Blood 4.1 g/dL (2.2-4.0); Glomerular Filtration Rate >60 (60-); Glucose, Blood 194 mg/dL (70-99); Potassium, Blood 3.9 mmol/L (3.5-5.5); Sodium, Blood 137 mmol/L (136-145); Total Protein, Blood 7.9 g/dL (6.4-8.2); Troponin I <0.015 ng/mL (0.000-0.040)
== END 2020-07-14 16:08 | disposition home or self-care (01) ==
LOC: ER 14:18
PROVIDERS: Emergency Medicine; Physician Assistant
DX: R07.9 Chest pain, unspecified (principal); R74.01 Elevation of levels of liver transaminase levels; E11.9 Type 2 diabetes mellitus without complications; I10 Essential (primary) hypertension; Z87.891 Personal history of nicotine dependence; Z79.84 Long term (current) use of oral hypoglycemic drugs; Z79.899 Other long term (current) drug therapy; Z88.8 Allergy status to other drugs, medicaments and biological substances
CPT/HCPCS: 36415; 71046; 80053; 83690; 83735; 84484; 85025; 93005; 93010; 99285-25; G0480

== ENCOUNTER 2020-08-18 19:27 | Emergency (ER) | payer OTHER ==
[~2020-08-18] VITALS: Ht 175.3 cm; Wt 128.8 kg
== END 2020-08-18 21:20 | disposition home or self-care (01) ==
LOC: ER 19:27
DX: T54.2X1A Toxic effect of corrosive acids and acid-like substances, accidental (unintentional), initial encounter (principal); R06.02 Shortness of breath; I10 Essential (primary) hypertension; E11.9 Type 2 diabetes mellitus without complications; Z88.8 Allergy status to other drugs, medicaments and biological substances; Z79.4 Long term (current) use of insulin; Z79.899 Other long term (current) drug therapy; Z87.891 Personal history of nicotine dependence
CPT/HCPCS: 71046; 99284-25

== ENCOUNTER 2020-09-24 10:31 | Emergency (ER) | payer OTHER ==
[~2020-09-24] VITALS: Ht 177.8 cm; Wt 128.8 kg
[2020-09-24 12:15] LABS: Source, Urine Clean Catch
[2020-09-24 12:20] LABS: BASOPHILS ABSOLUTE AUTO 0.04 K/mm3 (0.00-0.23); BASOPHILS PERCENT AUTO 1 % (0-2); EOSINOPHILS ABSOLUTE AUTO 0.14 K/mm3 (0.00-0.68); EOSINOPHILS PERCENT AUTO 2 % (0-6); Hematocrit 47.2 % (37.0-53.0); Hemoglobin 16.5 g/dL (13.5-17.5); IMMATURE GRAN ABSOLUTE AUTO 0.02 K/mm3 (0.00-0.10); IMMATURE GRAN PERCENT AUTO 0 % (0-1); LYMPHOCYTES ABSOLUTE AUTO 2.27 K/mm3 (0.84-5.20); LYMPHOCYTES PERCENT AUTO 37 % (21-46); MONOCYTES ABSOLUTE AUTO 0.38 K/mm3 (0.16-1.47); MONOCYTES PERCENT AUTO 6 % (4-13); Mean Corpuscular HGB 31.7 pg (26.0-34.0); Mean Corpuscular Volume 91 fL (80-100); Mean Platelet Volume 10.3 fL (9.1-12.4); NEUTROPHILS ABSOLUTE AUTO 3.29 K/mm3 (1.96-9.15); NEUTROPHILS PERCENT AUTO 54 % (41-73); Platelet Count 184 K/mm3 (150-400); RDW Coefficient Variation 12.3 % (11.7-14.2); RDW Standard Deviation 40.8 fL (35.1-46.3); White Blood Cell Count 6.14 K/mm3 (4.00-11.30)
[2020-09-24 12:31] LABS: Appearance, Urine Clear (Clear); Bilirubin, Urine Neg (Neg); Blood, Urine Neg (Neg); Color, Urine Yellow (P-Yellow); Glucose Qualitative, Urine 4+ (Neg); Ketones, Urine 2+ (Neg); Leukocyte Esterase, Urine Neg (Neg); Nitrite, Urine Neg (Neg); Protein, Urine 1+ (Neg); Specific Gravity, Urine 1.015 (1.003-1.022); Urobilinogen, Urine NORM (Normal)
[2020-09-24 12:51] LABS: Alanine Aminotransfer (ALT/SGP 255 U/L (12-78); Albumin, Blood 3.9 g/dL (3.4-5.0); Albumin/Globulin Ratio 0.9 (0.8-1.8); Alk Phos 200 U/L (50-136); Anion Gap 7 mmol/L (6-16); Aspartate Aminotrans (AST/SGOT 143 U/L (12-37); Bilirubin, Total 0.7 mg/dL (0.1-1.0); Blood Urea Nitrogen 9 mg/dL (8-24); Bun/Creatinine Ratio 16.7 (12.0-20.0); CO2, Blood 24 mmol/L (21-32); Calcium, Blood 9.6 mg/dL (8.5-10.1); Chloride, Blood 101 mmol/L (98-108); Creatinine, Blood 0.54 mg/dL (0.60-1.20); Globulin, Blood 4.2 g/dL (2.2-4.0); Glomerular Filtration Rate >60 (60-); Glucose, Blood 400 mg/dL (70-99); Potassium, Blood 4.3 mmol/L (3.5-5.5); Sodium, Blood 132 mmol/L (136-145); Total Protein, Blood 8.1 g/dL (6.4-8.2)
[2020-09-24 13:05] LABS: Base Excess Venous 0.6 mmol/L; Bicarbonate Venous 24.6 mmol/L (24.0-30.0); PCO2 Venous 42.1 mmHg (38-42); pH Blood Venous 7.39 (7.34-7.37)
[2020-09-24] MEDS ORDERED: OMEGA-3 + VITA200 ML PO (15:07)
[2020-09-24] MEDS ORDERED: ACETAMINOPHEN500 MG PO (16:15)
== END 2020-09-24 16:25 | disposition home or self-care (01) ==
LOC: ER 10:31
PROVIDERS: Physician Assistant
DX: K76.0 Fatty (change of) liver, not elsewhere classified (principal); E11.9 Type 2 diabetes mellitus without complications; Z88.8 Allergy status to other drugs, medicaments and biological substances; Z79.4 Long term (current) use of insulin; Z79.899 Other long term (current) drug therapy
CPT/HCPCS: 36415; 74177; 80053; 82010; 82803; 82947; 83690; 85025; 93005; 93010; 96374-59; 96375; 99284-25; J1170; J1815; J2405; J7030; Q9967

== ENCOUNTER → 2021-05-24 | Outpatient (CLI) | payer OTHER ==
[~2021-05-24] MED LIST changes: +ACETAMINOPHEN500 MG PO; +OMEGA-3 + VITA200 ML PO
[2021-05-24 11:59] LABS: BASOPHILS ABSOLUTE AUTO 0.02 K/mm3 (0.00-0.23); BASOPHILS PERCENT AUTO 0 % (0-2); EOSINOPHILS ABSOLUTE AUTO 0.23 K/mm3 (0.00-0.68); EOSINOPHILS PERCENT AUTO 3 % (0-6); Hematocrit 48.9 % (37.0-53.0); Hemoglobin 16.6 g/dL (13.5-17.5); IMMATURE GRAN ABSOLUTE AUTO 0.04 K/mm3 (0.00-0.10); IMMATURE GRAN PERCENT AUTO 1 % (0-1); LYMPHOCYTES ABSOLUTE AUTO 0.58 K/mm3 (0.84-5.20); LYMPHOCYTES PERCENT AUTO 8 % (21-46); MONOCYTES ABSOLUTE AUTO 0.24 K/mm3 (0.16-1.47); MONOCYTES PERCENT AUTO 3 % (4-13); Mean Corpuscular HGB Conc 33.9 g/dL (31.5-36.5); Mean Corpuscular Volume 94 fL (80-100); Mean Platelet Volume 10.2 fL (9.1-12.4); NEUTROPHILS ABSOLUTE AUTO 6.33 K/mm3 (1.96-9.15); NEUTROPHILS PERCENT AUTO 85 % (41-73); Platelet Count 169 K/mm3 (150-400); RDW Standard Deviation 44.5 fL (35.1-46.3); Red Blood Cell Count 5.19 M/mm3 (4.30-5.90); White Blood Cell Count 7.44 K/mm3 (4.00-11.30)
[2021-05-24 12:09] LABS: Alanine Aminotransfer (ALT/SGP 168 U/L (12-78); Albumin, Blood 3.6 g/dL (3.4-5.0); Alk Phos 104 U/L (40-126); Anion Gap 11 mmol/L (6-16); Aspartate Aminotrans (AST/SGOT 98 U/L (12-37); Bilirubin, Total 0.6 mg/dL (0.1-1.0); Blood Urea Nitrogen 15 mg/dL (8-24); Bun/Creatinine Ratio 15.3 (12.0-20.0); CO2, Blood 26 mmol/L (21-32); Calcium, Blood 8.7 mg/dL (8.5-10.1); Chloride, Blood 102 mmol/L (98-108); Creatinine, Blood 0.98 mg/dL (0.60-1.20); Globulin, Blood 3.5 g/dL (2.2-4.0); Glomerular Filtration Rate >60 (60-); Glucose, Blood 303 mg/dL (70-99); Potassium, Blood 4.2 mmol/L (3.5-5.5); Sodium, Blood 139 mmol/L (136-145); Total Protein, Blood 7.1 g/dL (6.4-8.2)
== END ==
LOC: LAB 11:52 → LAB SHORT 11:52
PROVIDERS: Chiropractor
DX: R19.7 Diarrhea, unspecified (principal); R11.2 Nausea with vomiting, unspecified
CPT/HCPCS: 80053; 83690; 85025

== ENCOUNTER → 2021-08-08 | Outpatient (CLI) | payer OTHER ==
[2021-08-08 14:32] LABS: BASOPHILS ABSOLUTE AUTO 0.05 K/mm3 (0.00-0.23); BASOPHILS PERCENT AUTO 1 % (0-2); EOSINOPHILS ABSOLUTE AUTO 0.43 K/mm3 (0.00-0.68); EOSINOPHILS PERCENT AUTO 6 % (0-6); Hematocrit 47.3 % (37.0-53.0); Hemoglobin 16.3 g/dL (13.5-17.5); IMMATURE GRAN ABSOLUTE AUTO 0.02 K/mm3 (0.00-0.10); IMMATURE GRAN PERCENT AUTO 0 % (0-1); LYMPHOCYTES ABSOLUTE AUTO 2.87 K/mm3 (0.84-5.20); LYMPHOCYTES PERCENT AUTO 38 % (21-46); MONOCYTES ABSOLUTE AUTO 0.44 K/mm3 (0.16-1.47); MONOCYTES PERCENT AUTO 6 % (4-13); Mean Corpuscular HGB 32.7 pg (26.0-34.0); Mean Corpuscular HGB Conc 34.5 g/dL (31.5-36.5); Mean Corpuscular Volume 95 fL (80-100); Mean Platelet Volume 10.1 fL (9.1-12.4); NEUTROPHILS PERCENT AUTO 50 % (41-73); Platelet Count 191 K/mm3 (150-400); RDW Standard Deviation 45.3 fL (35.1-46.3); Red Blood Cell Count 4.98 M/mm3 (4.30-5.90); White Blood Cell Count 7.61 K/mm3 (4.00-11.30)
[2021-08-08 14:47] LABS: Alanine Aminotransfer (ALT/SGP 211 U/L (12-78); Albumin/Globulin Ratio 1.1 (0.8-1.8); Alk Phos 126 U/L (40-126); Anion Gap 12 mmol/L (6-16); Aspartate Aminotrans (AST/SGOT 113 U/L (12-37); Bilirubin, Total 0.5 mg/dL (0.1-1.0); Blood Urea Nitrogen 14 mg/dL (8-24); Bun/Creatinine Ratio 17.1 (12.0-20.0); CO2, Blood 25 mmol/L (21-32); Calcium, Blood 9.3 mg/dL (8.5-10.1); Chloride, Blood 100 mmol/L (98-108); Creatinine, Blood 0.82 mg/dL (0.60-1.20); Globulin, Blood 3.7 g/dL (2.2-4.0); Glomerular Filtration Rate >60 (60-); Glucose, Blood 224 mg/dL (70-99); Potassium, Blood 4.2 mmol/L (3.5-5.5); Sodium, Blood 137 mmol/L (136-145); Total Protein, Blood 7.7 g/dL (6.4-8.2)
== END ==
LOC: LAB SHORT 14:28 → LAB 14:28
PROVIDERS: Physician Assistant Medical
DX: R10.13 Epigastric pain (principal)
CPT/HCPCS: 80053; 83690; 85025

== ENCOUNTER 2021-11-10 08:58 | Day surgery (SDC) | payer OTHER ==
[~2021-11-10] VITALS: Ht 175.3 cm; Wt 131.4 kg
== END 2021-11-10 11:46 | disposition home or self-care (01) ==
LOC: ORSCSDS 08:58
PROVIDERS: Student in an Organized Health Care Education/Training Program
PROC: 0DBN8ZX Excision of Sigmoid Colon, Via Natural or Artificial Opening Endoscopic, Diagnostic (ICD-10-PCS; principal; 2021-11-10 10:00)
PROC: 0DBH8ZX Excision of Cecum, Via Natural or Artificial Opening Endoscopic, Diagnostic (ICD-10-PCS; principal; 2021-11-10 10:00)
PROC: 0DBP8ZX Excision of Rectum, Via Natural or Artificial Opening Endoscopic, Diagnostic (ICD-10-PCS; principal; 2021-11-10 10:00)
PROC: 0DBL8ZX Excision of Transverse Colon, Via Natural or Artificial Opening Endoscopic, Diagnostic (ICD-10-PCS; principal; 2021-11-10 10:00)
PROC: 0DBM8ZX Excision of Descending Colon, Via Natural or Artificial Opening Endoscopic, Diagnostic (ICD-10-PCS; principal; 2021-11-10 10:00)
DX: Z12.11 Encounter for screening for malignant neoplasm of colon (principal); Z83.71 Family history of colonic polyps; D12.3 Benign neoplasm of transverse colon; D12.4 Benign neoplasm of descending colon; K62.1 Rectal polyp; D12.0 Benign neoplasm of cecum; I10 Essential (primary) hypertension; E11.9 Type 2 diabetes mellitus without complications; K21.9 Gastro-esophageal reflux disease without esophagitis; G47.33 Obstructive sleep apnea (adult) (pediatric); Z79.899 Other long term (current) drug therapy; E66.01 Morbid (severe) obesity due to excess calories; Z68.41 Body mass index [BMI] 40.0-44.9, adult
CPT/HCPCS: 82947; 88305; J2250; J2405; J2704; J7120

== ENCOUNTER 2023-10-23 18:50 | Inpatient (IN) | payer OTHER ==
[~2023-10-23] VITALS: Ht 172.7 cm; Wt 131.6 kg
[2023-10-23 19:20] LABS: Source, Urine Clean Catch
[2023-10-23 19:24] LABS: Appearance, Urine Clear (Clear); Bilirubin, Urine Neg (Neg); Blood, Urine Neg (Neg); Color, Urine Yellow (P-Yellow); Glucose Qualitative, Urine 3+ (Neg); Ketones, Urine Neg (Neg); Leukocyte Esterase, Urine 2+ (Neg); Nitrite, Urine Neg (Neg); Protein, Urine Neg (Neg); Urobilinogen, Urine NORM (Normal)
[2023-10-23 19:39] LABS: Bacteria Many /hpf; Red Blood Cells, Urine 0-2 /hpf (0-2); Squamous Epithelial Cells Rare /hpf (Few)
[2023-10-23 19:40] LABS: Transitional Epithelial Cells Rare /hpf (0-Rare)
[2023-10-23 19:55] LABS: BASOPHILS ABSOLUTE AUTO 0.04 K/mm3 (0.00-0.23); BASOPHILS PERCENT AUTO 1 % (0-2); EOSINOPHILS ABSOLUTE AUTO 0.41 K/mm3 (0.00-0.68); EOSINOPHILS PERCENT AUTO 6 % (0-6); Hematocrit 40.6 % (37.0-53.0); Hemoglobin 14.2 g/dL (13.5-17.5); IMMATURE GRAN ABSOLUTE AUTO 0.02 K/mm3 (0.00-0.10); IMMATURE GRAN PERCENT AUTO 0 % (0-1); LYMPHOCYTES ABSOLUTE AUTO 2.69 K/mm3 (0.84-5.20); LYMPHOCYTES PERCENT AUTO 39 % (21-46); MONOCYTES PERCENT AUTO 6 % (4-13); Mean Corpuscular HGB 32.1 pg (26.0-34.0); Mean Corpuscular Volume 92 fL (80-100); Mean Platelet Volume 10.2 fL (9.1-12.4); NEUTROPHILS ABSOLUTE AUTO 3.28 K/mm3 (1.96-9.15); NEUTROPHILS PERCENT AUTO 48 % (41-73); Platelet Count 187 K/mm3 (150-400); RDW Coefficient Variation 13.1 % (11.7-14.2); RDW Standard Deviation 44.3 fL (35.1-46.3); Red Blood Cell Count 4.43 M/mm3 (4.30-5.90); White Blood Cell Count 6.84 K/mm3 (4.00-11.30)
[2023-10-23 20:21] LABS: Albumin, Blood 3.8 g/dL (3.4-5.0); Bilirubin, Total 0.3 mg/dL (0.1-1.0); Bun/Creatinine Ratio 19.4 (12.0-20.0); Calcium, Blood 8.9 mg/dL (8.5-10.1); Creatinine, Blood 0.88 mg/dL (0.60-1.20); Globulin, Blood 3.8 g/dL (2.2-4.0); Potassium, Blood 3.8 mmol/L (3.5-5.5); Total Protein, Blood 7.6 g/dL (6.4-8.2)
[2023-10-24] MEDS ORDERED: NS 1,000 ML IV SCH ×2 (00:30→02:15)
[2023-10-24] MEDS ORDERED: Morphine Sulfate 10 MG/ML 1MLSYR IV ONE (00:30)
[2023-10-24] MEDS ORDERED: HYDROmorphone HCl/Pf 1MG SYR IV ONE (01:00)
[2023-10-24] MEDS ORDERED: Ondansetron HCl 2 MG / ML 2ML Vial IV ONE (01:30)
[2023-10-24] MEDS ORDERED: FentaNYL Citrate 50 MCG/ML 2 ML Injection IV PRN (02:10)
[2023-10-24] MEDS ORDERED: Ondansetron HCl 2 MG / ML 2ML Vial IV PRN (02:15)
[2023-10-24] MEDS ORDERED: CefTRIAXone Sodium 1,000 MG in NS 100 ML IV SCH (02:40)
[2023-10-24] MEDS ORDERED: TRESIBA FL100 UNIT/2 SC (02:43)
[2023-10-24] MEDS ORDERED: HUMALOG KW100 UNIT/1 SC (02:43)
[2023-10-24] MEDS ORDERED: BUSP5 PO (02:45)
[2023-10-24] MEDS ORDERED: SERT100 PO (02:46)
[2023-10-24] MEDS ORDERED: TIZANIDINE HCL2 MG PO (02:47)
[2023-10-24 02:58] LABS: BASOPHILS ABSOLUTE AUTO 0.03 K/mm3 (0.00-0.23); BASOPHILS PERCENT AUTO 1 % (0-2); EOSINOPHILS ABSOLUTE AUTO 0.35 K/mm3 (0.00-0.68); EOSINOPHILS PERCENT AUTO 6 % (0-6); Hematocrit 38.3 % (37.0-53.0); IMMATURE GRAN ABSOLUTE AUTO 0.02 K/mm3 (0.00-0.10); IMMATURE GRAN PERCENT AUTO 0 % (0-1); LYMPHOCYTES ABSOLUTE AUTO 2.82 K/mm3 (0.84-5.20); LYMPHOCYTES PERCENT AUTO 45 % (21-46); MONOCYTES ABSOLUTE AUTO 0.38 K/mm3 (0.16-1.47); MONOCYTES PERCENT AUTO 6 % (4-13); Mean Corpuscular HGB 31.7 pg (26.0-34.0); Mean Corpuscular HGB Conc 33.9 g/dL (31.5-36.5); Mean Corpuscular Volume 93 fL (80-100); Mean Platelet Volume 10.3 fL (9.1-12.4); NEUTROPHILS ABSOLUTE AUTO 2.66 K/mm3 (1.96-9.15); NEUTROPHILS PERCENT AUTO 43 % (41-73); Platelet Count 165 K/mm3 (150-400); RDW Coefficient Variation 13.2 % (11.7-14.2); White Blood Cell Count 6.26 K/mm3 (4.00-11.30)
[2023-10-24] MEDS ORDERED: Pantoprazole Sodium 40 MG Injection IV SCH (03:00)
[2023-10-24 03:04] LABS: Albumin, Blood 3.5 g/dL (3.4-5.0); Albumin/Globulin Ratio 1.1 (0.8-1.8); Bilirubin, Total 0.2 mg/dL (0.1-1.0); Bun/Creatinine Ratio 20.1 (12.0-20.0); Calcium, Blood 8.4 mg/dL (8.5-10.1); Creatinine, Blood 0.84 mg/dL (0.60-1.20); Globulin, Blood 3.3 g/dL (2.2-4.0); International Normalized Ratio 0.97; Potassium, Blood 3.8 mmol/L (3.5-5.5); Prothrombin Time Results 10.4 Sec (9.7-11.5); Total Protein, Blood 6.8 g/dL (6.4-8.2)
[2023-10-24 03:53] VITALS: BP 130/71
[2023-10-24 04:08] LABS: C-Reactive Protein, High Sens. 6.04 mg/dL (0.000-3.000)
[2023-10-24] MEDS ORDERED: TAMS.4ER PO (05:46)
--- NOTE | 2023-10-24 06:16 | NUR ---
SHIFT SUMMARY: PT ARRIVED TO ROOM 309 VIA GURNEY. PT WAS ABLE TO SELF TRANSFER TO BED, PT IS A/O X 4, IND IN ROOM, PLEASANT AND COOPERATIVE WITH CARE. PT REPORTED LUQ ABD PAIN ON ADMIT 01/08. FENTANYL 25 MCG GIVEN PER MAR AND EFFECTIVE IN MANAGING PAIN. PT HAS CONTINUOUS MONITORING GLUCOMETER. PT NPO AT THIS TIME AND IS Q6 BLOOD SUGAR CHECKS. PT IS A SMOKER. PT EDUCATED ON SMOKING POLICY AND DENIED HAVING SMOKING/IGNITION SOURCES ON HIM. PT REQUESTED A 7 MG NICOTINE PATCH WHICH WAS OBTAINED FROM DR. MUSE. PT HAD NO PRESSURE INJURIES. LABS PENDING AT THIS TIME TO CHECK MONO AND HEPATITIS. IV FLUIDS NS AT 75 CURRENTLY RUNNING. PT REQUESTED CPAP, ORDERS PLACED AND RT SET UP.
[2023-10-24] MEDS ORDERED: Insulin Human Lispro 100 Units/ML 3ML Syringe SC SCH ×2 (07:30→12:00)
[2023-10-24 07:31] VITALS: BP 126/79
[2023-10-24] MEDS ORDERED: Carvedilol 25 MG Tab PO SCH (08:00)
[2023-10-24] MEDS ORDERED: Insulin Glargine-Yfgn 100 Unit/mL 3 ML SYR SC SCH (09:00)
[2023-10-24] MEDS ORDERED: Nicotine 7 MG PATCH TOP SCH (09:00)
[2023-10-24] MEDS ORDERED: Tamsulosin HCl 0.4 MG Cap PO SCH (09:00)
[2023-10-24] MEDS ORDERED: Losartan Potassium 50 MG Tab PO SCH (09:00)
[2023-10-24] MEDS ORDERED: Sertraline HCl 100 MG Tab PO SCH (09:00)
[2023-10-24] MEDS ORDERED: Enoxaparin 40 MG/0.4 ML SYR SC SCH (09:00)
[2023-10-24 11:44] LABS: Cholesterol 189 mg/dL (50-200); Triglycerides 368 mg/dL (30-160)
[2023-10-24] MEDS ORDERED: Morphine Sulfate 4 MG/1 ML Injection IV PRN (12:50)
[2023-10-24] MEDS ORDERED: FENOFIBRATE145 MG PO (13:19)
[2023-10-24 15:32] VITALS: BP 128/81
[2023-10-24] MEDS ORDERED: Lidocaine HCl 4% 5 ML SDA ONE (15:46)
[2023-10-24] MEDS ORDERED: propofoL 20 ML IV ONE ×2 (15:46→15:47)
[2023-10-24] MEDS ORDERED: Lactated Ringer's 1,000 ML IV SCH (15:50)
--- NOTE | 2023-10-24 16:10 | NUR ---
10/24/23 [address] ROSADO; SEE ANESTHESIA RECORDS.
[2023-10-24 16:26] VITALS: BP 119/70
--- NOTE | 2023-10-24 17:34 | NUR ---
PATIENT A/OX4, UP INDEPENDENTLY IN ROOM. WENT FOR EGD TODAY, PER REPORT NOTHING SIGNIFICANT DISCOVERED. PATIENT TOLERATING CLEAR DIET. VSS, ON RA. CPAP AT [facility]. LUQ ABD PAIN BETTER CONTROLLED WITH MORPHINE. PATIENT DENIES ANY NAUSEA. COOPERATIVE WITH CARE. IV TO R AC WNL AND SL. PATIENT CONTINENT OF URINE, USING URINAL TO VOID.
[2023-10-24 20:25] VITALS: BP 114/80
[2023-10-24] MEDS ORDERED: BusPIRone HCl 5 MG Tab PO SCH (21:00)
[2023-10-24] MEDS ORDERED: Loratadine 10 MG Tab PO ONE (21:45)
[2023-10-25 03:03] VITALS: BP 121/77
--- NOTE | 2023-10-25 06:19 | NUR ---
Patient alert and oriented, VSS this shift. Patient ambulating to bathroom with standby assistance, using urinal with setup assistance. IV fluids discontinued per order, PRN morphine given x2 this shift for report of pain. Blood glucose within limits, but patient required snacks for significant drop per his wireless glucometer at 0200. Patient rested well with CPAP in place, tolerated well.
[2023-10-25 07:27] VITALS: BP 111/70
[2023-10-25] MEDS ORDERED: HYDROcodone 5-APAP 325 TAB PO PRN (08:35)
[2023-10-25] MEDS ORDERED: Fenofibrate, Micronized 134 MG Capsule PO SCH (09:00)
[2023-10-25] MEDS ORDERED: Insulin Human Lispro 100 Units/ML 3ML Syringe SC SCH (11:30)
[2023-10-25] MEDS ORDERED: Ketorolac Tromethamine 30mg Vial IV PRN (11:30)
[2023-10-25 15:54] VITALS: BP 117/83
--- NOTE | 2023-10-25 17:06 | NUR ---
"Spiritual Care | Pt. Request Pt. is awake in bed and welcomes my visit. Pt. is pleasant. Facilitated a life review. Pt. verbalized that he works at [employer] and was a former employee at this hospital. Listen with interest and empathy. Considered matters of teresa and belief. Pt. displayed evidence of continued discomfort. Prayed with Pt. Pt. verbalized gratitude for the spiritual care visit."
--- NOTE | 2023-10-25 17:22 | NUR ---
PT WAS ALERT AND ORIENTED TODAY, VERY TIRED. LEFT ABDOMINAL PAIN WAS RADIATING TO LEFT FLANK, AROUND 1330, PT REPORTED PAIN WAS STARTING TO FOCUS MORE ON ORIGIN (SPLEEN) AND NOT RADIATE. SWITCHED FROM MORPHINE TO NORCO WHICH HE PREFERRED BUT PAIN STILL WORSENED. GAVE 15MG TORADOL IV AND NORCO AT 1315. PT REPORTED FEELING MUCH BETTER. AMUBLATED TO BATHROOM FOR BM, USED URINAL. STARTING TOMORROW, ADVANCE FULL LIQUID DIET TOLERATED, POSSIBLE DISCHARGE TOMORROW PAIN ALLOWS.
[2023-10-25 17:46] LABS: HEPATITIS A ANTIBODY, IGM Negative (Negative); HEPATITIS B CORE ANTIBODY, IGM Negative (Negative); HEPATITIS B SURFACE ANTIGEN Negative (Negative); HEPATITIS C AB CIA INTERP Negative (Negative); HEPATITIS C ANTIBODY CIA INDEX 0.07 IV
--- NOTE | 2023-10-25 18:03 | NUR ---
PATIENT A/OX4, UP INDEPENDENTLY TO RESTROOM TODAY. REPORTS LUQ ABDOMINAL PAIN MUCH BETTER CONTROLLED WITH NORCO AND TORADOL. DENIES ANY NAUSEA. FULL LIQUID DIET ORDERED FOR DINNER TONIGHT AND PATIENT IS TOLERATING WELL. POSSIBLE DC TOMORROW. NO NEW CONCERNS THIS SHIFT.
--- NOTE | 2023-10-25 18:05 | NUR ---
REVIEWED ASSESSMENT AND NOTES CHARTED BY NASREEN, STUDENT NURSE AND AGREE WITH HIS DOCUMENTATION FOR THIS PATIENT.
[2023-10-25 19:59] VITALS: BP 130/85
[2023-10-26 04:37] VITALS: BP 121/76
--- NOTE | 2023-10-26 04:52 | NUR ---
SHIFT SUMMARY KAIT WAS ALERT AND FULLY ORIENTED AT THE START OF SHIFT. PAIN IS BETTER CONTROLLED TONIGHT COMPARED TO PREVIOUS NIGHT. PT CBGS WELL CONTROLLED. NO NEW COMPLAINTS THIS SHIFT, NO CHANGES TO PT CONDITION, PT RESTING IN BED AT A LOW POSTITION WITH CALL LIGHT IN REACH, XFER TO TOILET W/ SBA.
[2023-10-26 07:14] VITALS: BP 112/77
[2023-10-26] MEDS ORDERED: Norco 5-325 Ta1 EACH PO (11:42)
--- NOTE | 2023-10-26 12:24 | NUR ---
DISCHARGE DC'D PT'S IV, HANDLED WELL W/ MIN DISCOMFORT. WRAPPED GAUZE AND COBAN. REFUSED INSULIN, REPORTED WILL TAKE INSULIN AT HOME WITH LUNCH. HARD PRESCRIPTION IN DISHCARGE PAPERWORK FOR MARGARET. TAKEN TO ER ENTRANCE IN WHEELCHAIR BY EFRA CHENG.
--- NOTE | 2023-10-26 13:16 | NUR ---
REVIEWED ASSESSMENTS AND NOTES CHARTED BY NASREEN, STUDENT NURSE AND AGREE WITH HIS DOCUMENTATION FOR THIS PATIENT. PATIENT D/C'D TO HOME. DC INSTRUCTIONS AND EDUCATION DISCUSSED WITH PATIENT AND COPY PROVIDED. HARD SCRIPT FOR NORCO GIVEN TO PATIENT. PATIENT DENIES ANY FUTHER QUESTIONS OR CONCERNS.
== END 2023-10-26 12:06 | disposition home or self-care (01) | DRG 439 ==
LOC: ER 18:50 → MEDS 18:51
PROVIDERS: Student in an Organized Health Care Education/Training Program; Surgery; ADMIT Internal Medicine
PROC: 0DB78ZX Excision of Stomach, Pylorus, Via Natural or Artificial Opening Endoscopic, Diagnostic (ICD-10-PCS; principal; 2023-10-24 16:00)
DX: K85.90 Acute pancreatitis without necrosis or infection, unspecified (principal); Z68.41 Body mass index [BMI] 40.0-44.9, adult; R10.13 Epigastric pain; K76.0 Fatty (change of) liver, not elsewhere classified; N20.0 Calculus of kidney; I10 Essential (primary) hypertension; E11.9 Type 2 diabetes mellitus without complications; E66.01 Morbid (severe) obesity due to excess calories; G47.33 Obstructive sleep apnea (adult) (pediatric); Z98.890 Other specified postprocedural states; Z90.49 Acquired absence of other specified parts of digestive tract; F17.210 Nicotine dependence, cigarettes, uncomplicated; F10.90 Alcohol use, unspecified, uncomplicated; Z88.8 Allergy status to other drugs, medicaments and biological substances; Z79.84 Long term (current) use of oral hypoglycemic drugs; Z79.4 Long term (current) use of insulin; Z79.899 Other long term (current) drug therapy; D64.9 Anemia, unspecified; R16.2 Hepatomegaly with splenomegaly, not elsewhere classified
CPT/HCPCS: 36415; 74177; 80053; 80074; 81001; 82465; 82947; 83605; 83690; 83880; 84145; 84478; 85025; 85379; 85610; 85651; 86141; 86308; 87086; 88305; 88342; 94660; 94760; 94762; 96361; 96365; 96372; 96374; 96375; 96376; 99285-25; A9270; C9113; G0378; J0696; J1170; J1650; J1815; J1885; J2001; J2270; J2405; J2704; J3010; J7030; J7120; Q9967

== ENCOUNTER → 2025-03-20 | Outpatient (CLI) | payer BC, OTHER ==
[~2025-03-20] MED LIST changes: +BUSP5 PO; +FENOFIBRATE145 MG PO; +HUMALOG KW100 UNIT/1 SC; +METPRE4DP PO; +SERT100 PO; +TAMS.4ER PO; +TIZANIDINE HCL2 MG PO; +TRESIBA FL100 UNIT/2 SC
[2025-03-20 08:38] LABS: BASOPHILS ABSOLUTE AUTO 0.05 K/mm3 (0.00-0.23); BASOPHILS PERCENT AUTO 1 % (0-2); EOSINOPHILS ABSOLUTE AUTO 0.18 K/mm3 (0.00-0.68); EOSINOPHILS PERCENT AUTO 3 % (0-6); Hematocrit 42.2 % (37.0-53.0); Hemoglobin 14.8 g/dL (13.5-17.5); IMMATURE GRAN ABSOLUTE AUTO 0.04 K/mm3 (0.00-0.10); IMMATURE GRAN PERCENT AUTO 1 % (0-1); LYMPHOCYTES ABSOLUTE AUTO 2.41 K/mm3 (0.84-5.20); LYMPHOCYTES PERCENT AUTO 35 % (21-46); MONOCYTES ABSOLUTE AUTO 0.45 K/mm3 (0.16-1.47); MONOCYTES PERCENT AUTO 7 % (4-13); Mean Corpuscular HGB Conc 35.1 g/dL (31.5-36.5); Mean Corpuscular Volume 92 fL (80-100); NEUTROPHILS ABSOLUTE AUTO 3.70 K/mm3 (1.96-9.15); NEUTROPHILS PERCENT AUTO 54 % (41-73); NRBC ABSOLUTE 0.00 K/mm3 (0.00-0.02); NRBC Auto 0.0 /100 WBC (0.0-0.2); Platelet Count 190 K/mm3 (150-400); RDW Coefficient Variation 13.0 % (11.7-14.2); RDW Standard Deviation 42.9 fL (35.1-46.3)
[2025-03-20 08:52] LABS: Alanine Aminotransfer (ALT/SGP 98.0 U/L (12-78); Albumin, Blood 3.9 g/dL (3.4-5.0); Albumin/Globulin Ratio 1.0 (0.8-1.8); Anion Gap 15.0 mmol/L (3-11); Aspartate Aminotrans (AST/SGOT 55.0 U/L (12-37); Bilirubin, Total 0.5 mg/dL (0.1-1.0); Blood Urea Nitrogen 14.0 mg/dL (8-24); CO2, Blood 27.0 mmol/L (21-32); Calcium, Blood 9.3 mg/dL (8.5-10.1); Chloride, Blood 99.0 mmol/L (98-108); Creatinine, Blood 0.79 mg/dL (0.60-1.20); Globulin, Blood 3.8 g/dL (2.2-4.0); Glucose, Blood 288.0 mg/dL (70-99); Potassium, Blood 4.3 mmol/L (3.5-5.5); Sodium, Blood 137.0 mmol/L (136-145); Total Protein, Blood 7.7 g/dL (6.4-8.2)
== END ==
LOC: LAB SHORT 08:31 → LAB 08:31
DX: R25.1 Tremor, unspecified (principal)
CPT/HCPCS: 80053; 85025